=== PATIENT | male | born 1945 | race African-American/Black ===

== ENCOUNTER 2022-08-06 15:37 | Inpatient (IN) | payer MEDICARE, MEDICAID ==
[~2022-08-06] VITALS: Ht 182.9 cm; Wt 81.2 kg
[2022-08-06] MEDS ORDERED: ASPIRIN 81MG TABLET PO NR (17:00)
[2022-08-06 17:34] LABS: CHLORIDE 101 mEq/L (98-107); HEMATOCRIT. 39.2 % (42.0-52.0); MEAN CORPUSCULAR HEMOGLOBIN 28.4 pg (28.0-32.0); MEAN CORPUSCULAR VOLUME 85.5 fL (80.0-94.0); MEAN PLATELET VOLUME 8.7 fl (7.4-10.4); PLATELET 209 x1000/uL (130-400); RED BLOOD CELL COUNT 4.58 mill/uL (4.7-6.1); RED CELL DISTRIBUTION WIDTH 13.7 % (11.6-14.6)
[2022-08-06] MEDS ORDERED: ASPIRIN 81MG TABLET PO ONE (18:00)
[2022-08-06] MEDS ORDERED: ENOXAPARIN 60MG/0.6ML SYR SUBCUT NR (18:15)
[2022-08-06] MEDS ORDERED: SODIUM CHLORIDE 0.9% 500 ML IV ONE (18:15)
[2022-08-06 19:07] LABS: PLATELET ESTIMATE NORMAL
[2022-08-06] MEDS ORDERED: ACETAMINOPHEN 325MG TABLET PO PRN ×2 (19:30)
[2022-08-06] MEDS ORDERED: NITROGLYCERIN 0.4MG TABLET SL SL PRN (19:30)
[2022-08-06] MEDS ORDERED: ZOLPIDEM TARTRATE 5MG TABLET PO PRN (19:30)
[2022-08-06] MEDS ORDERED: CLONIDINE 0.1MG TABLET PO PRN (19:30)
[2022-08-06] MEDS ORDERED: IPRATROPIUM/ALBUTEROL 0.5-3(2.5)MG/3ML NEB NEB PRN (19:30)
[2022-08-06] MEDS ORDERED: GUAIFENESIN 200MG/10ML SUGAR FREE UDC PO PRN (19:30)
[2022-08-06] MEDS ORDERED: MAGNESIUM/ALUMINUM HYDROXIDE/SIMETHICONE 30ML UDC PO PRN (19:30)
[2022-08-06] MEDS ORDERED: NA PHOS,M-B/NA PHOS,DI-BA ENEMA 118ML PR PRN (19:30)
[2022-08-06] MEDS ORDERED: ONDANSETRON HCL 4MG/2ML INJ IV PRN (19:30)
[2022-08-06 20:43] LABS: ETHANOL BLOOD < 10 mg/dL; HDL CHOLESTEROL 45 mg/dL (40-59); LDL CHOLESTEROL 64 mg/dL (5-100); T4 FREE 0.96 ng/dL (0.76-1.46)
[2022-08-06] MEDS: AMLODIPINE 10MG TABLET PO SCH (20:52)
[2022-08-06 20:56] LABS: FOLIC ACID (FOLATE) SERUM 3.9 ng/mL (>5.38)
[2022-08-06] MEDS: FAMOTIDINE 20MG TABLET PO SCH (22:39)
[2022-08-06] MEDS: ASCORBIC ACID 500 MG TABLET PO SCH (22:39)
[2022-08-06 23:13] LABS: TOTAL IRON BINDING CAPACITY 185 ug/dL (250-450)
[2022-08-07 00:45] VITALS: BP 121/54
[2022-08-07] MEDS ORDERED: DOCU-150 MT (05:52)
[2022-08-07] MEDS ORDERED: IBUP-2029 PO (05:52)
[2022-08-07] MEDS ORDERED: LISI2.5T47 PO (05:52)
[2022-08-07] MEDS ORDERED: MELO-104 PO (05:52)
[2022-08-07] MEDS ORDERED: ASPI-986 PO (05:52)
[2022-08-07] MEDS ORDERED: ATOR80TA PO (05:52)
[2022-08-07] MEDS ORDERED: DOCU-138 MT (05:52)
[2022-08-07] MEDS ORDERED: TIZA4CAP MT (05:54)
[2022-08-07 06:59] LABS: INR 1.2; PROTHROMBIN TIME 12.3 sec (9.6-11.0)
[2022-08-07 07:06] LABS: HEMATOCRIT. 33.1 % (42.0-52.0); HEMOGLOBIN. 11.1 g/dL (14.0-18.0); MEAN CORPUSCULAR HEMOGLOBIN 28.5 pg (28.0-32.0); MEAN CORPUSCULAR VOLUME 84.6 fL (80.0-94.0); MEAN PLATELET VOLUME 8.8 fl (7.4-10.4); PLATELET 186 x1000/uL (130-400); RED BLOOD CELL COUNT 3.91 mill/uL (4.7-6.1); RED CELL DISTRIBUTION WIDTH 13.6 % (11.6-14.6)
[2022-08-07 08:00] VITALS: BP 115/51
[2022-08-07] MEDS ORDERED: ASPIRIN 325MG EC TABLET PO SCH (09:00)
[2022-08-07] MEDS: ASPIRIN 81MG EC TABLET PO SCH (09:00)
[2022-08-07] MEDS: ENOXAPARIN 80MG/0.8ML SYR SUBCUT SCH ×2 (09:00→21:00)
[2022-08-07 10:02] LABS: CHLORIDE 104 mEq/L (98-107)
[2022-08-07] MEDS: ASCORBIC ACID 500 MG TABLET PO SCH ×2 (10:09→21:00)
[2022-08-07] MEDS: ZINC SULFATE 220 MG ( 50 ) CAPSULE PO SCH (10:09)
[2022-08-07] MEDS: AMLODIPINE 10MG TABLET PO SCH (10:10)
[2022-08-07] MEDS: FAMOTIDINE 20MG TABLET PO SCH ×2 (10:11→21:00)
[2022-08-07 10:19] LABS: CREATINE KINASE 200 IU/L (39-308); CREATINE KINASE MB FRACTION 2.3 ng/mL (0.5-3.6); PHOSPHORUS 2.5 mg/dL (2.5-4.9)
[2022-08-07 11:52] LABS: PLATELET ESTIMATE NORMAL
[2022-08-07 12:00] VITALS: BP 121/54
[2022-08-07] MEDS ORDERED: POTASSIUM CHLORIDE 20MEQ TABLET SR PO NR (12:30)
[2022-08-07] MEDS ORDERED: IODIXANOL 320MG/ML 100 ML BOTTLE IV ONE (13:12)
[2022-08-07] MEDS ORDERED: DIPHENHYDRAMINE 50MG/ML VIAL ONE (13:18)
[2022-08-07] MEDS ORDERED: LIDOCAINE HCL/PF 1% 10 MG/ML 5ML VIAL ONE (13:18)
[2022-08-07] MEDS ORDERED: HEPARIN 1000 UNITS/ML 10ML ONE (13:19)
[2022-08-07] MEDS ORDERED: VERAPAMIL HCL 2.5 MG/1 ML 2ML VIAL IV ONE (13:19)
[2022-08-07] MEDS ORDERED: MIDAZOLAM HCL 2 MG/2 ML VIAL ONE (13:40)
[2022-08-07] MEDS ORDERED: FENTANYL CITRATE/PF 50MCG/ML 2ML VIAL ONE (13:40)
[2022-08-07] MEDS ORDERED: ACETAMINOPHEN 325MG TABLET PO PRN (14:45)
[2022-08-07] MEDS ORDERED: ATROPINE SULFATE 1MG/10ML SYR IV PRN (14:45)
[2022-08-07 18:00] VITALS: BP 129/72
[2022-08-07 20:00] VITALS: BP 118/85
[2022-08-07] MEDS ORDERED: ASCORBIC ACID 500 MG TABLET PO SCH (21:00)
[2022-08-07] MEDS: ATORVASTATIN CALCIUM 40MG TABLET PO SCH (21:00)
[2022-08-07] MEDS ORDERED: DOCUSATE SODIUM 100MG CAPSULE PO SCH (21:00)
[2022-08-07] MEDS: ALLOPURINOL 300 MG TABLET PO SCH (21:00)
[2022-08-07] MEDS ORDERED: CHLORHEXIDINE GLUCONATE 4% EXTERNAL USE TOP SCH (21:00)
[2022-08-08] VITALS: BP 112/85
[2022-08-08 07:11] LABS: HEMATOCRIT 33.3 % (42.0-52.0); HEMOGLOBIN 11.2 g/dL (14.0-18.0); MEAN CORPUSCULAR HEMOGLOBIN 28.7 pg (28.0-32.0); MEAN CORPUSCULAR VOLUME 85.3 fL (80.0-94.0); PLATELET 203 x1000/uL (130-400); RED BLOOD CELL COUNT 3.91 mill/uL (4.7-6.1); RED CELL DISTRIBUTION WIDTH 13.6 % (11.6-14.6)
[2022-08-08 08:00] VITALS: BP 134/55
[2022-08-08] MEDS: FAMOTIDINE 20MG TABLET PO SCH ×2 (08:38→20:26)
[2022-08-08] MEDS: ENOXAPARIN 80MG/0.8ML SYR SUBCUT SCH ×2 (08:38→20:26)
[2022-08-08] MEDS: ASPIRIN 81MG EC TABLET PO SCH (08:38)
[2022-08-08] MEDS: ZINC SULFATE 220 MG ( 50 ) CAPSULE PO SCH (08:38)
[2022-08-08 08:57] LABS: CHLORIDE 110 mEq/L (98-107)
[2022-08-08] MEDS: CHLORHEXIDINE GLUCONATE 4% EXTERNAL USE TOP SCH (09:00)
[2022-08-08] MEDS: ASCORBIC ACID 500 MG TABLET PO SCH ×2 (09:07→20:26)
[2022-08-08] MEDS: ALLOPURINOL 300 MG TABLET PO SCH (09:07)
[2022-08-08 12:00] VITALS: BP 153/67
[2022-08-08 14:17] LABS: CLARITY URINE CLOUDY (CLEAR); COLOR URINE YELLOW (YELLOW); KETONES URINE NEGATIVE (NEGATIVE); LEUKOCYTE ESTERASE URINE 2+ (NEGATIVE); NITRITE URINE POSITIVE (NEGATIVE); OCCULT BLOOD URINE 1+ (NEGATIVE); PROTEIN URINE NEGATIVE (NEGATIVE); SPECIFIC GRAVITY URINE 1.018 (1.005-1.030); UROBILINOGEN URINE 0.2 E.U./dL (0.2-1.0)
[2022-08-08 15:35] LABS: *AMPHETAMINES SCREEN URINE NEGATIVE (NEGATIVE); *BARBITURATES SCREEN URINE NEGATIVE (NEGATIVE); *BENZODIAZEPINES SCREEN URINE PRESUMTIVE POSITIVE (NEGATIVE); *COCAINE SCREEN URINE NEGATIVE (NEGATIVE); CANNABINOID URINE SCREEN NEGATIVE (NEGATIVE); METHADONE URINE SCREEN NEGATIVE (NEGATIVE); OPIATES URINE SCREEN NEGATIVE (NEGATIVE); PHENCYCLIDINE URINE SCREEN NEGATIVE (NEGATIVE)
[2022-08-08 16:00] VITALS: BP 152/75
[2022-08-08 20:00] VITALS: BP 143/63
[2022-08-08] MEDS: ATORVASTATIN CALCIUM 40MG TABLET PO SCH (20:26)
[2022-08-09] VITALS: BP 143/68
[2022-08-09 07:15] LABS: HEMATOCRIT 34.2 % (42.0-52.0); HEMOGLOBIN 11.6 g/dL (14.0-18.0); MEAN CORPUSCULAR HEMOGLOBIN 28.6 pg (28.0-32.0); MEAN CORPUSCULAR VOLUME 84.3 fL (80.0-94.0); PLATELET 217 x1000/uL (130-400); RED BLOOD CELL COUNT 4.06 mill/uL (4.7-6.1); RED CELL DISTRIBUTION WIDTH 13.5 % (11.6-14.6)
[2022-08-09 07:29] LABS: CHLORIDE 108 mEq/L (98-107)
[2022-08-09 08:16] VITALS: BP 141/70
[2022-08-09] MEDS: CHLORHEXIDINE GLUCONATE 4% EXTERNAL USE TOP SCH ×2 (09:00→22:34)
[2022-08-09] MEDS: ASCORBIC ACID 500 MG TABLET PO SCH (09:29)
[2022-08-09] MEDS: FAMOTIDINE 20MG TABLET PO SCH ×2 (09:29→22:33)
[2022-08-09] MEDS: ZINC SULFATE 220 MG ( 50 ) CAPSULE PO SCH (09:29)
[2022-08-09] MEDS: ASPIRIN 81MG EC TABLET PO SCH (09:29)
[2022-08-09 12:16] VITALS: BP 139/70
[2022-08-09 16:17] VITALS: BP 146/96
[2022-08-09 20:00] VITALS: BP 159/78
[2022-08-09] MEDS ORDERED: DOCUSATE SODIUM 100MG CAPSULE PO SCH (21:00)
[2022-08-09] MEDS ORDERED: ASCORBIC ACID 500 MG TABLET PO NR (21:00)
[2022-08-09] MEDS ORDERED: ASCORBIC ACID 500 MG TABLET PO SCH (21:00)
[2022-08-09] MEDS ORDERED: ALLOPURINOL 100 MG TABLET PO SCH (21:00)
[2022-08-09] MEDS: ALLOPURINOL 300 MG TABLET PO SCH (22:33)
[2022-08-09] MEDS: ATORVASTATIN CALCIUM 40MG TABLET PO SCH (22:33)
[2022-08-10] VITALS (39 sets, daily range): BP systolic 101–176; BP diastolic 44–84
[2022-08-10] MEDS ORDERED: DOBUTAMINE 250 MG in DEXT 5% WATER 230 ML IV NR (04:00)
[2022-08-10] MEDS ORDERED: NOREPINEPHRINE 8 MG in DEXT 5% WATER 242 ML IV NR (04:00)
[2022-08-10] MEDS ORDERED: CEFAZOLIN 2,000 MG in DEXT 5% WATER 100 ML IV NR (04:00)
[2022-08-10] MEDS ORDERED: EPINEPHRINE 5 MG in DEXT 5% WATER 245 ML IV NR (04:00)
[2022-08-10] MEDS ORDERED: NICARDIPINE 40MG/200ML PREMIX 200 ML IV NR (04:00)
[2022-08-10] MEDS ORDERED: PAPAVERINE HCL 180MG in SODIUM CHLORIDE 0.9% 24ML IV NR (04:00)
[2022-08-10] MEDS ORDERED: DEL NIDO ELECTROLYTE-S(PH 7.4) 1,000 ML IV NR ×2 (04:00)
[2022-08-10] MEDS ORDERED: INSULIN REGULAR 100U/100ML PMX 100 ML IV NR (04:00)
[2022-08-10] MEDS: ALLOPURINOL 300 MG TABLET PO SCH (05:01)
[2022-08-10] MEDS ORDERED: POLYMYXIN B SULFATE 500000 UNITS/VIAL ONE (05:13)
[2022-08-10] MEDS ORDERED: THROMBIN (BOVINE) 5000 UNITS/VIAL TOP ONE (05:13)
[2022-08-10] MEDS ORDERED: HEPARIN 1000 UNITS/ML 10ML ONE ×2 (05:16→14:11)
[2022-08-10] MEDS ORDERED: DOPAMINE 400MG/250ML PREMIX 250 ML IV ONE (05:50)
[2022-08-10] MEDS ORDERED: NICARDIPINE 40MG/200ML PREMIX 200 ML IV ONE (05:51)
[2022-08-10] MEDS ORDERED: SEVOFLURANE 250 ML LIQUID INH ONE (05:51)
[2022-08-10 06:04] LABS: HEMATOCRIT 35.7 % (42.0-52.0); MEAN CORPUSCULAR HEMOGLOBIN 28.4 pg (28.0-32.0); MEAN CORPUSCULAR VOLUME 84.5 fL (80.0-94.0); PLATELET 236 x1000/uL (130-400); RED BLOOD CELL COUNT 4.23 mill/uL (4.7-6.1); RED CELL DISTRIBUTION WIDTH 13.4 % (11.6-14.6)
[2022-08-10 08:25] LABS: CHLORIDE 108 mEq/L (98-107)
[2022-08-10] MEDS: CHLORHEXIDINE GLUCONATE 4% EXTERNAL USE TOP SCH (09:00)
[2022-08-10] MEDS: ASCORBIC ACID 500 MG TABLET PO SCH ×2 (09:00→20:17)
[2022-08-10] MEDS: FAMOTIDINE 20MG TABLET PO SCH (09:00)
[2022-08-10] MEDS: ZINC SULFATE 220 MG ( 50 ) CAPSULE PO SCH (09:00)
[2022-08-10] MEDS: ASPIRIN 81MG EC TABLET PO SCH (09:00)
[2022-08-10] MEDS ORDERED: SKIN ADHESIVE 0.7 GM EA TOP ONE (11:34)
[2022-08-10] MEDS ORDERED: ROCURONIUM BROMIDE 10MG/ML VIAL 5ML IV ONE (12:25)
[2022-08-10] MEDS ORDERED: FENTANYL CITRATE/PF 50MCG/ML 2ML VIAL ONE ×2 (12:25→15:21)
[2022-08-10] MEDS ORDERED: CALCIUM CHLORIDE 1GM/10ML SYR IV ONE ×2 (12:26→14:22)
[2022-08-10] MEDS ORDERED: PROPOFOL 200MG/20ML VIAL IV ONE (12:46)
[2022-08-10] MEDS ORDERED: GLYCOPYRROLATE 0.2 MG/ML 2ML VIAL ONE ×2 (13:42→15:02)
[2022-08-10] MEDS ORDERED: DEXAMETHASONE 4MG/ML 1ML VIAL ONE (14:11)
[2022-08-10] MEDS ORDERED: PROTAMINE SULFATE 10MG/ML VIAL 25ML IV ONE (14:57)
[2022-08-10] MEDS ORDERED: KCL 10MEQ/50ML PREMIX 150 ML IV PRN (15:00)
[2022-08-10] MEDS ORDERED: KETOROLAC 30MG/ML VIAL ONE (15:00)
[2022-08-10] MEDS ORDERED: KCL 10MEQ/50ML PREMIX 200 ML IV PRN (15:00)
[2022-08-10] MEDS ORDERED: DEXTROSE 50% WATER 50ML SYRINGE IV PRN ×2 (15:00)
[2022-08-10] MEDS ORDERED: NEOSTIGMINE METHYLSULFATE 1MG/ML 10 ML VIAL ONE (15:02)
[2022-08-10] MEDS ORDERED: VASOPRESSIN 20 UNIT/ML 1ML ONE (15:04)
[2022-08-10] MEDS ORDERED: KETOROLAC 30MG/ML VIAL IV PRN (15:15)
[2022-08-10] MEDS ORDERED: EPINEPHRINE 5 MG in DEXT 5% WATER 245 ML IV PRN (15:15)
[2022-08-10] MEDS ORDERED: ACETAMINOPHEN 325MG TABLET PO PRN (15:15)
[2022-08-10] MEDS ORDERED: MAGNESIUM SULFATE 3 GM in DEXT 5% WATER 100 ML IV PRN (15:15)
[2022-08-10] MEDS ORDERED: ONDANSETRON HCL 4MG/2ML INJ IV PRN (15:15)
[2022-08-10] MEDS ORDERED: ALBUMIN HUMAN 12.5G/250ML (5%) IV PRN (15:15)
[2022-08-10] MEDS ORDERED: MAGNESIUM 1 G PREMIX 100 ML IV PRN (15:15)
[2022-08-10] MEDS ORDERED: DOPAMINE 400MG/250ML PREMIX 250 ML IV PRN (15:15)
[2022-08-10] MEDS ORDERED: ALBUMIN HUMAN 25GM/100ML (25%) IV PRN (15:15)
[2022-08-10] MEDS ORDERED: SODIUM CHLORIDE 0.9% 500 ML IV PRN (15:15)
[2022-08-10] MEDS ORDERED: OXYCODONE HCL/ACETAMINOPHEN 5/325MG TABLET PO PRN ×2 (15:15)
[2022-08-10] MEDS ORDERED: CALCIUM CHLORIDE 3,000 MG in DEXT 5% WATER 250 ML IV PRN (15:15)
[2022-08-10 15:41] LABS: BG BASE EXCESS -3.8 mmol/L (-2.0-2.0); BG CARBOXYHEMOGLOBIN 0.3 % (0.5-1.5); BG DEOXYHEMOGLOBIN 4.9 % (0.0-5.0); BG FRACTION INSPIRED OXYGEN 100; BG HCO3 ACT 21.5 mmol/L (22.0-26.0); BG METHEMOGLOBIN 0.2 % (0.0-1.5); BG OXYGEN SATURATION 95.1 % (92.0-98.5); BG OXYHEMOGLOBIN 94.6 % (94.0-97.0); BG PCO2 40.2 mmHg (35.0-45.0); BG PH 7.347 (7.350-7.450); BG PO2 85.5 mmHg (75.0-100.0); BG SAMPLE SITE ALINE; BG TOTAL HEMOGLOBIN 12.4 g/dL (12.0-18.0); BG VENT MODE MASK - NRB
[2022-08-10] MEDS: DEXT 5%/0.45% NACL 1000ML 1,000 ML IV SCH (15:54)
[2022-08-10 16:00] LABS: HEMATOCRIT. 34.4 % (42.0-52.0); HEMOGLOBIN. 11.4 g/dL (14.0-18.0); MEAN CORPUSCULAR HEMOGLOBIN 27.9 pg (28.0-32.0); MEAN CORPUSCULAR VOLUME 83.9 fL (80.0-94.0); MEAN PLATELET VOLUME 7.6 fl (7.4-10.4); PLATELET 248 x1000/uL (130-400); RED CELL DISTRIBUTION WIDTH 13.1 % (11.6-14.6)
[2022-08-10] MEDS: BLOOD SUGAR DIAGNOSTIC STRIP TEST SCH ×8 (16:00→23:08)
[2022-08-10] MEDS ORDERED: NICARDIPINE 50 MG in SODIUM CHLORIDE 0.9% 230 ML IV PRN (16:00)
[2022-08-10 16:13] LABS: CHLORIDE 112 mEq/L (98-107)
[2022-08-10] MEDS ORDERED: INSULIN REGULAR 100U/100ML PMX 100 ML IV PRN (16:30)
[2022-08-10 16:40] LABS: INR 1.1; PROTHROMBIN TIME 11.4 sec (9.6-11.0)
[2022-08-10] MEDS: KCL 10MEQ/50ML PREMIX 100 ML IV PRN ×2 (16:42→17:58)
[2022-08-10] MEDS: CEFAZOLIN 1000MG PREMIX 50 ML IV SCH ×2 (16:50→23:51)
[2022-08-10] MEDS ORDERED: DOCUSATE SODIUM 100MG CAPSULE PO SCH (17:00)
[2022-08-10] MEDS ORDERED: ASPIRIN 81MG EC TABLET PO SCH (20:00)
[2022-08-10] MEDS: ATORVASTATIN CALCIUM 40MG TABLET PO SCH (20:17)
[2022-08-10] MEDS: CLOPIDOGREL 75MG TABLET PO SCH (20:17)
[2022-08-10 20:52] LABS: PLATELET ESTIMATE NORMAL
[2022-08-10] MEDS: IPRATROPIUM/ALBUTEROL 0.5-3(2.5)MG/3ML NEB HHN SCH (21:10)
[2022-08-10 21:50] LABS: HEMATOCRIT. 34.6 % (42.0-52.0); HEMOGLOBIN. 11.6 g/dL (14.0-18.0); MEAN CORPUSCULAR HEMOGLOBIN 28.2 pg (28.0-32.0); MEAN CORPUSCULAR VOLUME 83.9 fL (80.0-94.0); MEAN PLATELET VOLUME 7.7 fl (7.4-10.4); PLATELET 261 x1000/uL (130-400); RED BLOOD CELL COUNT 4.12 mill/uL (4.7-6.1); RED CELL DISTRIBUTION WIDTH 13.1 % (11.6-14.6)
[2022-08-10 21:55] LABS: CHLORIDE 109 mEq/L (98-107)
[2022-08-10 22:14] LABS: PLATELET ESTIMATE NORMAL
[2022-08-10] MEDS: MAGNESIUM 2 G PREMIX 50 ML IV PRN (22:17)
[2022-08-11] VITALS (50 sets, daily range): BP systolic 81–190; BP diastolic 34–81
[2022-08-11] MEDS: BLOOD SUGAR DIAGNOSTIC STRIP TEST SCH ×14 (00:03→13:52)
[2022-08-11] MEDS: IPRATROPIUM/ALBUTEROL 0.5-3(2.5)MG/3ML NEB HHN SCH ×6 (00:50→21:03)
[2022-08-11] MEDS: KCL 10MEQ/50ML PREMIX 100 ML IV PRN (01:13)
[2022-08-11 05:53] LABS: HEMOGLOBIN. 11.5 g/dL (14.0-18.0); MEAN CORPUSCULAR HEMOGLOBIN 28.2 pg (28.0-32.0); MEAN CORPUSCULAR VOLUME 83.1 fL (80.0-94.0); PLATELET 277 x1000/uL (130-400); RED BLOOD CELL COUNT 4.09 mill/uL (4.7-6.1)
[2022-08-11 05:59] LABS: CHLORIDE 110 mEq/L (98-107)
[2022-08-11 06:03] LABS: PHOSPHORUS 3.9 mg/dL (2.5-4.9)
[2022-08-11] MEDS: MAGNESIUM 2 G PREMIX 50 ML IV PRN (06:12)
[2022-08-11 08:02] LABS: PLATELET ESTIMATE NORMAL
[2022-08-11] MEDS ORDERED: FUROSEMIDE 40MG/4ML VIAL IVP NR (08:09)
[2022-08-11] MEDS: ZINC SULFATE 220 MG ( 50 ) CAPSULE PO SCH (08:41)
[2022-08-11] MEDS: ASPIRIN 81MG TABLET PO SCH (08:41)
[2022-08-11] MEDS: ASCORBIC ACID 500 MG TABLET PO SCH ×2 (08:41→20:39)
[2022-08-11] MEDS: DOCUSATE SODIUM 100MG CAPSULE PO PRN (08:41)
[2022-08-11] MEDS: BACITRACIN 15GM TUBE TOP SCH ×2 (08:51→17:00)
[2022-08-11] MEDS: TAMSULOSIN HCL 0.4MG SR CAPSULE PO SCH (08:51)
[2022-08-11] MEDS: DOCUSATE SODIUM 250MG CAPSULE PO SCH ×2 (08:51→15:42)
[2022-08-11] MEDS: CEFAZOLIN 1000MG PREMIX 50 ML IV SCH (08:51)
[2022-08-11] MEDS: CLOPIDOGREL 75MG TABLET PO SCH (09:00)
[2022-08-11] MEDS ORDERED: METOPROLOL TARTRATE 25MG TABLET PO SCH (09:00)
[2022-08-11] MEDS ORDERED: TRAMADOL HCL/ACETAMINOPHEN 37.5/325MG TABLET PO PRN (09:00)
[2022-08-11] MEDS: METOPROLOL TARTRATE 25MG TABLET PO SCH ×2 (09:00→20:40)
[2022-08-11] MEDS ORDERED: FAMOTIDINE 20MG/2ML VIAL IV SCH (09:00)
[2022-08-11] MEDS: POTASSIUM CHLORIDE 10MEQ TABLET SR PO SCH (09:00)
[2022-08-11] MEDS: FAMOTIDINE 20MG TABLET PO SCH ×2 (09:00→20:39)
[2022-08-11] MEDS ORDERED: MAGNESIUM 4 G PREMIX 100 ML IV NR (09:30)
[2022-08-11] MEDS ORDERED: NALOXONE HCL 0.4MG/ML VIAL IV PRN (13:00)
[2022-08-11] MEDS: DEXT 5%/0.45% NACL 1000ML 1,000 ML IV SCH (15:26)
[2022-08-11] MEDS: ATORVASTATIN CALCIUM 40MG TABLET PO SCH (20:39)
[2022-08-12] VITALS (8 sets, daily range): BP systolic 104–150; BP diastolic 54–91
[2022-08-12] MEDS: IPRATROPIUM/ALBUTEROL 0.5-3(2.5)MG/3ML NEB HHN SCH ×4 (00:18→20:21)
[2022-08-12 08:04] LABS: BASOPHILS % 0.2 % (0.0-2.0); EOSINOPHILS % 0.2 % (0.0-5.0); HEMATOCRIT. 34.6 % (42.0-52.0); HEMOGLOBIN. 11.7 g/dL (14.0-18.0); LYMPHOCYTES % 8.1 % (20.0-50.0); MEAN CORPUSCULAR HEMOGLOBIN 28.6 pg (28.0-32.0); MEAN CORPUSCULAR VOLUME 84.7 fL (80.0-94.0); MEAN PLATELET VOLUME 7.8 fl (7.4-10.4); MONOCYTES % 9.9 % (2.0-8.0); NEUTROPHILS % 81.6 % (40.0-76.0); PLATELET 287 x1000/uL (130-400); RED BLOOD CELL COUNT 4.08 mill/uL (4.7-6.1); RED CELL DISTRIBUTION WIDTH 13.3 % (11.6-14.6)
[2022-08-12 08:23] LABS: CHLORIDE 108 mEq/L (98-107)
[2022-08-12] MEDS: TAMSULOSIN HCL 0.4MG SR CAPSULE PO SCH (09:16)
[2022-08-12] MEDS: ZINC SULFATE 220 MG ( 50 ) CAPSULE PO SCH (09:16)
[2022-08-12] MEDS: POTASSIUM CHLORIDE 10MEQ TABLET SR PO SCH (09:16)
[2022-08-12] MEDS: FUROSEMIDE 20MG TABLET PO SCH (09:16)
[2022-08-12] MEDS: ASPIRIN 81MG TABLET PO SCH (09:16)
[2022-08-12] MEDS: FAMOTIDINE 20MG TABLET PO SCH ×2 (09:16→21:01)
[2022-08-12] MEDS: DOCUSATE SODIUM 100MG CAPSULE PO PRN (09:16)
[2022-08-12] MEDS: CLOPIDOGREL 75MG TABLET PO SCH (09:17)
[2022-08-12] MEDS: BACITRACIN 15GM TUBE TOP SCH ×2 (09:17→17:06)
[2022-08-12] MEDS: METOPROLOL TARTRATE 25MG TABLET PO SCH (09:17)
[2022-08-12] MEDS: ASCORBIC ACID 500 MG TABLET PO SCH ×2 (09:17→21:01)
[2022-08-12] MEDS: DOCUSATE SODIUM 250MG CAPSULE PO SCH ×2 (09:24→17:06)
[2022-08-12] MEDS ORDERED: KETOROLAC 15MG/ML VIAL IV PRN (12:15)
[2022-08-12] MEDS ORDERED: FUROSEMIDE 40MG/4ML VIAL IVP NR (13:00)
[2022-08-12] MEDS ORDERED: MAGNESIUM 4 G PREMIX 100 ML IV NR (14:00)
[2022-08-12] MEDS: DEXT 5%/0.45% NACL 1000ML 1,000 ML IV SCH (14:07)
[2022-08-12] MEDS: METOPROLOL TARTRATE 50MG TABLET PO SCH (21:00)
[2022-08-12] MEDS: ATORVASTATIN CALCIUM 40MG TABLET PO SCH (21:01)
[2022-08-13] MEDS: IPRATROPIUM/ALBUTEROL 0.5-3(2.5)MG/3ML NEB HHN SCH ×6 (00:19→20:46)
[2022-08-13 04:00] VITALS: BP 124/77
[2022-08-13 06:23] LABS: BASOPHILS % 0.3 % (0.0-2.0); EOSINOPHILS % 0.4 % (0.0-5.0); HEMATOCRIT. 34.1 % (42.0-52.0); HEMOGLOBIN. 11.3 g/dL (14.0-18.0); LYMPHOCYTES % 10.1 % (20.0-50.0); MEAN CORPUSCULAR HEMOGLOBIN 28.3 pg (28.0-32.0); MEAN CORPUSCULAR VOLUME 85.3 fL (80.0-94.0); MEAN PLATELET VOLUME 7.7 fl (7.4-10.4); MONOCYTES % 12.2 % (2.0-8.0); PLATELET 285 x1000/uL (130-400); RED CELL DISTRIBUTION WIDTH 13.6 % (11.6-14.6)
[2022-08-13 07:26] LABS: CHLORIDE 109 mEq/L (98-107)
[2022-08-13] MEDS ORDERED: FUROSEMIDE 40MG/4ML VIAL IVP NR (07:30)
[2022-08-13 08:22] VITALS: BP 118/71
[2022-08-13] MEDS ORDERED: MAGNESIUM 2 G PREMIX 50 ML IV NR (09:00)
[2022-08-13] MEDS: DOCUSATE SODIUM 250MG CAPSULE PO SCH ×2 (09:00→17:40)
[2022-08-13] MEDS: FUROSEMIDE 20MG TABLET PO SCH (09:28)
[2022-08-13] MEDS: TAMSULOSIN HCL 0.4MG SR CAPSULE PO SCH (09:29)
[2022-08-13] MEDS: ASPIRIN 81MG TABLET PO SCH (09:29)
[2022-08-13] MEDS: CLOPIDOGREL 75MG TABLET PO SCH (09:29)
[2022-08-13] MEDS: BACITRACIN 15GM TUBE TOP SCH ×2 (09:30→17:35)
[2022-08-13] MEDS: ZINC SULFATE 220 MG ( 50 ) CAPSULE PO SCH (09:30)
[2022-08-13] MEDS: POTASSIUM CHLORIDE 10MEQ TABLET SR PO SCH (09:30)
[2022-08-13] MEDS: ASCORBIC ACID 500 MG TABLET PO SCH ×2 (09:30→21:12)
[2022-08-13] MEDS: FAMOTIDINE 20MG TABLET PO SCH ×2 (09:32→21:12)
[2022-08-13] MEDS: METOPROLOL TARTRATE 50MG TABLET PO SCH ×2 (09:32→21:00)
[2022-08-13] MEDS: DOCUSATE SODIUM 100MG CAPSULE PO PRN (09:33)
[2022-08-13 12:00] VITALS: BP 92/59
[2022-08-13 16:00] VITALS: BP 136/93
[2022-08-13] MEDS: DEXT 5%/0.45% NACL 1000ML 1,000 ML IV SCH (16:00)
[2022-08-13 20:00] VITALS: BP 108/64
[2022-08-13] MEDS: ATORVASTATIN CALCIUM 40MG TABLET PO SCH (21:12)
[2022-08-14] VITALS (7 sets, daily range): BP systolic 87–117; BP diastolic 51–58
[2022-08-14] MEDS: IPRATROPIUM/ALBUTEROL 0.5-3(2.5)MG/3ML NEB HHN SCH ×6 (00:53→21:49)
[2022-08-14] MEDS: ZINC SULFATE 220 MG ( 50 ) CAPSULE PO SCH (08:32)
[2022-08-14] MEDS: ASCORBIC ACID 500 MG TABLET PO SCH ×2 (08:32→22:08)
[2022-08-14] MEDS: POTASSIUM CHLORIDE 10MEQ TABLET SR PO SCH (08:33)
[2022-08-14] MEDS: FAMOTIDINE 20MG TABLET PO SCH ×2 (08:33→22:08)
[2022-08-14] MEDS: TAMSULOSIN HCL 0.4MG SR CAPSULE PO SCH (08:33)
[2022-08-14] MEDS: METOPROLOL TARTRATE 25MG TABLET PO SCH ×2 (08:33→21:00)
[2022-08-14] MEDS: DOCUSATE SODIUM 100MG CAPSULE PO PRN (08:34)
[2022-08-14] MEDS: ASPIRIN 81MG TABLET PO SCH (08:34)
[2022-08-14] MEDS: DOCUSATE SODIUM 250MG CAPSULE PO SCH ×2 (09:00→17:00)
[2022-08-14] MEDS: BACITRACIN 15GM TUBE TOP SCH ×2 (09:06→17:58)
[2022-08-14] MEDS: FUROSEMIDE 20MG TABLET PO SCH (09:06)
[2022-08-14] MEDS: CLOPIDOGREL 75MG TABLET PO SCH (09:06)
[2022-08-14] MEDS: DEXT 5%/0.45% NACL 1000ML 1,000 ML IV SCH (18:41)
[2022-08-14] MEDS: ATORVASTATIN CALCIUM 40MG TABLET PO SCH (22:08)
[2022-08-15] VITALS: BP 101/62
[2022-08-15] MEDS: IPRATROPIUM/ALBUTEROL 0.5-3(2.5)MG/3ML NEB HHN SCH ×6 (01:28→20:52)
[2022-08-15 04:00] VITALS: BP 99/64
[2022-08-15 08:00] VITALS: BP 100/39
[2022-08-15] MEDS: POTASSIUM CHLORIDE 10MEQ TABLET SR PO SCH (09:04)
[2022-08-15] MEDS: ASPIRIN 81MG TABLET PO SCH (09:04)
[2022-08-15] MEDS: TAMSULOSIN HCL 0.4MG SR CAPSULE PO SCH (09:05)
[2022-08-15] MEDS: METOPROLOL TARTRATE 25MG TABLET PO SCH ×2 (09:05→21:14)
[2022-08-15] MEDS: CLOPIDOGREL 75MG TABLET PO SCH (09:05)
[2022-08-15] MEDS: FAMOTIDINE 20MG TABLET PO SCH ×2 (09:05→21:14)
[2022-08-15] MEDS: FUROSEMIDE 20MG TABLET PO SCH (09:05)
[2022-08-15] MEDS: DOCUSATE SODIUM 250MG CAPSULE PO SCH ×2 (09:05→17:43)
[2022-08-15] MEDS: ASCORBIC ACID 500 MG TABLET PO SCH ×2 (09:05→21:13)
[2022-08-15] MEDS: ARIPIPRAZOLE 2MG TABLET PO SCH (09:06)
[2022-08-15] MEDS: ZINC SULFATE 220 MG ( 50 ) CAPSULE PO SCH (09:06)
[2022-08-15] MEDS: BACITRACIN 15GM TUBE TOP SCH ×2 (09:06→17:43)
[2022-08-15 12:00] VITALS: BP 105/62
[2022-08-15 16:47] VITALS: BP 103/55
[2022-08-15 20:10] VITALS: BP 109/58
[2022-08-15] MEDS: ATORVASTATIN CALCIUM 40MG TABLET PO SCH (21:14)
[2022-08-16] VITALS (7 sets, daily range): BP systolic 97–131; BP diastolic 55–71
[2022-08-16] MEDS: IPRATROPIUM/ALBUTEROL 0.5-3(2.5)MG/3ML NEB HHN SCH ×5 (00:49→16:57)
[2022-08-16] MEDS: ASPIRIN 81MG TABLET PO SCH (09:02)
[2022-08-16] MEDS: POTASSIUM CHLORIDE 10MEQ TABLET SR PO SCH (09:02)
[2022-08-16] MEDS: FUROSEMIDE 20MG TABLET PO SCH (09:02)
[2022-08-16] MEDS: DOCUSATE SODIUM 250MG CAPSULE PO SCH ×2 (09:02→17:42)
[2022-08-16] MEDS: ARIPIPRAZOLE 2MG TABLET PO SCH (09:02)
[2022-08-16] MEDS: ASCORBIC ACID 500 MG TABLET PO SCH ×2 (09:02→20:36)
[2022-08-16] MEDS: METOPROLOL TARTRATE 25MG TABLET PO SCH ×2 (09:03→20:37)
[2022-08-16] MEDS: ZINC SULFATE 220 MG ( 50 ) CAPSULE PO SCH (09:03)
[2022-08-16] MEDS: CLOPIDOGREL 75MG TABLET PO SCH (09:03)
[2022-08-16] MEDS: TAMSULOSIN HCL 0.4MG SR CAPSULE PO SCH (09:04)
[2022-08-16] MEDS: BACITRACIN 15GM TUBE TOP SCH ×2 (09:06→17:42)
[2022-08-16] MEDS: FAMOTIDINE 20MG TABLET PO SCH ×2 (09:06→20:36)
[2022-08-16] MEDS: ATORVASTATIN CALCIUM 40MG TABLET PO SCH (20:36)
[2022-08-17 00:03] VITALS: BP 162/91
[2022-08-17 04:00] VITALS: BP 102/50
[2022-08-17] MEDS: IPRATROPIUM/ALBUTEROL 0.5-3(2.5)MG/3ML NEB HHN SCH ×4 (07:30→20:21)
[2022-08-17 08:00] VITALS: BP 119/57
[2022-08-17] MEDS: TAMSULOSIN HCL 0.4MG SR CAPSULE PO SCH (08:43)
[2022-08-17] MEDS: FUROSEMIDE 20MG TABLET PO SCH (08:43)
[2022-08-17] MEDS: ASCORBIC ACID 500 MG TABLET PO SCH ×2 (08:43→22:20)
[2022-08-17] MEDS: CLOPIDOGREL 75MG TABLET PO SCH (08:43)
[2022-08-17] MEDS: POTASSIUM CHLORIDE 10MEQ TABLET SR PO SCH (08:43)
[2022-08-17] MEDS: DOCUSATE SODIUM 250MG CAPSULE PO SCH ×2 (08:43→17:21)
[2022-08-17] MEDS: ZINC SULFATE 220 MG ( 50 ) CAPSULE PO SCH (08:43)
[2022-08-17] MEDS: FAMOTIDINE 20MG TABLET PO SCH ×2 (08:43→22:20)
[2022-08-17] MEDS: ARIPIPRAZOLE 2MG TABLET PO SCH (08:43)
[2022-08-17] MEDS: METOPROLOL TARTRATE 25MG TABLET PO SCH ×2 (08:43→22:21)
[2022-08-17] MEDS: ASPIRIN 81MG TABLET PO SCH (08:43)
[2022-08-17] MEDS: BACITRACIN 15GM TUBE TOP SCH ×2 (08:44→17:22)
[2022-08-17 12:00] VITALS: BP 110/81
[2022-08-17 16:00] VITALS: BP 119/61
[2022-08-17 20:00] VITALS: BP 117/61
[2022-08-17] MEDS: ATORVASTATIN CALCIUM 40MG TABLET PO SCH (22:20)
[2022-08-18] VITALS: BP 101/54
[2022-08-18] MEDS: IPRATROPIUM/ALBUTEROL 0.5-3(2.5)MG/3ML NEB HHN SCH ×7 (00:24→23:43)
[2022-08-18 04:00] VITALS: BP 102/51
[2022-08-18 08:00] VITALS: BP 101/41
[2022-08-18] MEDS: POTASSIUM CHLORIDE 10MEQ TABLET SR PO SCH (09:50)
[2022-08-18] MEDS: ASPIRIN 81MG TABLET PO SCH (09:50)
[2022-08-18] MEDS: FAMOTIDINE 20MG TABLET PO SCH ×2 (09:50→20:54)
[2022-08-18] MEDS: CLOPIDOGREL 75MG TABLET PO SCH (09:50)
[2022-08-18] MEDS: DOCUSATE SODIUM 250MG CAPSULE PO SCH ×2 (09:50→17:33)
[2022-08-18] MEDS: ZINC SULFATE 220 MG ( 50 ) CAPSULE PO SCH (09:50)
[2022-08-18] MEDS: ASCORBIC ACID 500 MG TABLET PO SCH ×2 (09:50→20:54)
[2022-08-18] MEDS: ARIPIPRAZOLE 2MG TABLET PO SCH (09:50)
[2022-08-18] MEDS: TAMSULOSIN HCL 0.4MG SR CAPSULE PO SCH (09:51)
[2022-08-18] MEDS: METOPROLOL TARTRATE 25MG TABLET PO SCH ×2 (09:51→20:55)
[2022-08-18] MEDS: FUROSEMIDE 20MG TABLET PO SCH (09:51)
[2022-08-18] MEDS: BACITRACIN 15GM TUBE TOP SCH ×2 (09:52→17:34)
[2022-08-18 12:00] VITALS: BP 128/65
[2022-08-18 16:00] VITALS: BP 111/73
[2022-08-18] MEDS: ACETAMINOPHEN 325MG TABLET PO PRN (17:38)
[2022-08-18 20:00] VITALS: BP 98/68
[2022-08-18] MEDS: ATORVASTATIN CALCIUM 40MG TABLET PO SCH (20:54)
[2022-08-19] VITALS: BP 104/65
[2022-08-19] MEDS: IPRATROPIUM/ALBUTEROL 0.5-3(2.5)MG/3ML NEB HHN SCH ×5 (03:52→21:14)
[2022-08-19 04:00] VITALS: BP 100/63
[2022-08-19 08:00] VITALS: BP 113/69
[2022-08-19] MEDS: FAMOTIDINE 20MG TABLET PO SCH ×2 (09:52→21:33)
[2022-08-19] MEDS: FUROSEMIDE 20MG TABLET PO SCH (09:52)
[2022-08-19] MEDS: TAMSULOSIN HCL 0.4MG SR CAPSULE PO SCH (09:52)
[2022-08-19] MEDS: ASPIRIN 81MG TABLET PO SCH (09:52)
[2022-08-19] MEDS: DOCUSATE SODIUM 250MG CAPSULE PO SCH ×2 (09:52→17:31)
[2022-08-19] MEDS: CLOPIDOGREL 75MG TABLET PO SCH (09:52)
[2022-08-19] MEDS: ZINC SULFATE 220 MG ( 50 ) CAPSULE PO SCH (09:52)
[2022-08-19] MEDS: ASCORBIC ACID 500 MG TABLET PO SCH ×2 (09:53→21:33)
[2022-08-19] MEDS: ARIPIPRAZOLE 5MG TABLET PO SCH (09:53)
[2022-08-19] MEDS: POTASSIUM CHLORIDE 10MEQ TABLET SR PO SCH (09:53)
[2022-08-19] MEDS: METOPROLOL TARTRATE 25MG TABLET PO SCH ×2 (09:54→21:00)
[2022-08-19] MEDS: BACITRACIN 15GM TUBE TOP SCH ×2 (09:54→17:31)
[2022-08-19 12:00] VITALS: BP 102/55
[2022-08-19 16:00] VITALS: BP 108/72
[2022-08-19 20:00] VITALS: BP 129/77
[2022-08-19] MEDS: ATORVASTATIN CALCIUM 40MG TABLET PO SCH (21:33)
[2022-08-19] MEDS: ACETAMINOPHEN 325MG TABLET PO PRN (21:34)
[2022-08-20] VITALS (7 sets, daily range): BP systolic 91–123; BP diastolic 59–73
[2022-08-20] MEDS: IPRATROPIUM/ALBUTEROL 0.5-3(2.5)MG/3ML NEB HHN SCH ×6 (00:41→20:44)
[2022-08-20] MEDS: ZINC SULFATE 220 MG ( 50 ) CAPSULE PO SCH (09:58)
[2022-08-20] MEDS: ASPIRIN 81MG TABLET PO SCH (09:58)
[2022-08-20] MEDS: POTASSIUM CHLORIDE 10MEQ TABLET SR PO SCH (09:58)
[2022-08-20] MEDS: ASCORBIC ACID 500 MG TABLET PO SCH ×2 (09:59→20:06)
[2022-08-20] MEDS: ARIPIPRAZOLE 5MG TABLET PO SCH (09:59)
[2022-08-20] MEDS: FUROSEMIDE 20MG TABLET PO SCH (09:59)
[2022-08-20] MEDS: DOCUSATE SODIUM 250MG CAPSULE PO SCH ×2 (09:59→19:16)
[2022-08-20] MEDS: FAMOTIDINE 20MG TABLET PO SCH ×2 (09:59→20:06)
[2022-08-20] MEDS: CLOPIDOGREL 75MG TABLET PO SCH (09:59)
[2022-08-20] MEDS: TAMSULOSIN HCL 0.4MG SR CAPSULE PO SCH (09:59)
[2022-08-20] MEDS: METOPROLOL TARTRATE 25MG TABLET PO SCH ×2 (10:01→20:06)
[2022-08-20] MEDS: BACITRACIN 15GM TUBE TOP SCH ×2 (10:02→19:16)
[2022-08-20] MEDS: ATORVASTATIN CALCIUM 40MG TABLET PO SCH (20:06)
[2022-08-21] VITALS: BP 102/58
[2022-08-21] MEDS: IPRATROPIUM/ALBUTEROL 0.5-3(2.5)MG/3ML NEB HHN SCH ×5 (00:21→17:10)
[2022-08-21 04:00] VITALS: BP 108/62
[2022-08-21 08:05] VITALS: BP 115/62
[2022-08-21] MEDS: ZINC SULFATE 220 MG ( 50 ) CAPSULE PO SCH (08:44)
[2022-08-21] MEDS: DOCUSATE SODIUM 250MG CAPSULE PO SCH ×2 (08:44→17:00)
[2022-08-21] MEDS: CLOPIDOGREL 75MG TABLET PO SCH (08:44)
[2022-08-21] MEDS: FAMOTIDINE 20MG TABLET PO SCH ×2 (08:44→20:50)
[2022-08-21] MEDS: METOPROLOL TARTRATE 25MG TABLET PO SCH ×2 (08:44→20:50)
[2022-08-21] MEDS: ASCORBIC ACID 500 MG TABLET PO SCH ×2 (08:44→20:51)
[2022-08-21] MEDS: ASPIRIN 81MG TABLET PO SCH (08:44)
[2022-08-21] MEDS: FUROSEMIDE 20MG TABLET PO SCH (08:45)
[2022-08-21] MEDS: POTASSIUM CHLORIDE 10MEQ TABLET SR PO SCH (08:45)
[2022-08-21] MEDS: TAMSULOSIN HCL 0.4MG SR CAPSULE PO SCH (08:45)
[2022-08-21] MEDS: ARIPIPRAZOLE 5MG TABLET PO SCH (08:45)
[2022-08-21] MEDS: BACITRACIN 15GM TUBE TOP SCH ×2 (08:45→17:00)
[2022-08-21 12:00] VITALS: BP 107/58
[2022-08-21] MEDS ORDERED: CLOP75TA15 PO (13:38)
[2022-08-21] MEDS ORDERED: FAMO20TA8 PO (13:38)
[2022-08-21] MEDS ORDERED: TAMS-11 PO (13:38)
[2022-08-21] MEDS ORDERED: FURO20TA4 PO (13:38)
[2022-08-21] MEDS ORDERED: SPIR25TA MT (13:38)
[2022-08-21] MEDS ORDERED: METO25TA6 PO (13:38)
[2022-08-21 16:00] VITALS: BP 105/64
[2022-08-21 17:08] VITALS: BP 107/58
[2022-08-21] MEDS: ATORVASTATIN CALCIUM 40MG TABLET PO SCH (20:51)
[2022-08-22] MEDS ORDERED: ARIPIPRAZOLE 5MG TABLET PO SCH (21:00)
== END 2022-08-21 22:00 | disposition home health service (06) | DRG 233 ==
LOC: ER 15:37 → SUPCPDRO 19:30 → ENRESERV 20:47 → 8WST 08-07 01:39 → 3WST 08-07 15:58 → CVICU 08-10 12:44 → 3WST 08-11 11:50
PROVIDERS: ADMIT Internal Medicine; ATTEND Internal Medicine
PROC: 4A023N7 Measurement of Cardiac Sampling and Pressure, Left Heart, Percutaneous Approach (ICD-10-PCS; 2022-08-07)
PROC: 02100Z9 Bypass Coronary Artery, One Artery from Left Internal Mammary, Open Approach (ICD-10-PCS; principal; 2022-08-10)
PROC: 021109W Bypass Coronary Artery, Two Arteries from Aorta with Autologous Venous Tissue, Open Approach (ICD-10-PCS; 2022-08-10)
PROC: 06BP4ZZ Excision of Right Saphenous Vein, Percutaneous Endoscopic Approach (ICD-10-PCS; 2022-08-10)
PROC: B211YZZ Fluoroscopy of Multiple Coronary Arteries using Other Contrast (ICD-10-PCS; 2022-08-10)
DX: I25.10 Atherosclerotic heart disease of native coronary artery without angina pectoris (principal); I21.4 Non-ST elevation (NSTEMI) myocardial infarction; F20.0 Paranoid schizophrenia; D64.9 Anemia, unspecified; D72.829 Elevated white blood cell count, unspecified; E78.5 Hyperlipidemia, unspecified; I10 Essential (primary) hypertension; Z20.822 Contact with and (suspected) exposure to COVID-19; E11.65 Type 2 diabetes mellitus with hyperglycemia; Z79.899 Other long term (current) drug therapy; Z86.73 Personal history of transient ischemic attack (TIA), and cerebral infarction without residual deficits; Z91.14 Patient's other noncompliance with medication regimen; I25.2 Old myocardial infarction
CPT/HCPCS: 36415; 36600; 71045; 80048; 80053; 80061; 80305; 80320; 81003; 82375; 82550; 82553; 82607; 82746; 82805; 82962; 83036; 83540; 83550; 83605; 83735; 83880; 84100; 84132; 84439; 84443; 84484; 85025; 85027; 85347; 86850; 86900; 86920; 87426; 92610; 93005; 93306; 93458; 93880; 93970; 94640; 97110; 97116; 97162; 97166; 97530; 97535; 99285; C1729; C1751; C1758; C1769; C1887; C1893; J0690; J1100; J1200; J1265; J1644; J1650; J1815; J1885; J1940; J2250; J2440; J2704; J2710; J2720; J3010; J3475; J3490; J7060; L3908; Q9967; A4315; G0480